=== PATIENT | male | born 1980 | race Caucasian/White ===

== ENCOUNTER 2022-03-24 12:47 | Emergency (ER) | payer SELFPAY ==
[~2022-03-24] VITALS: Ht 167.6 cm; Wt 81.8 kg
[2022-03-24 12:57] VITALS: BP 139/86
[2022-03-24] MEDS ORDERED: HYDROcodone/acetaminophen 10/325mg tab PO STA (13:02)
[2022-03-24] MEDS ORDERED: OXYC-658 PO ×2 (16:53→18:43)
== END 2022-03-24 17:15 | disposition home or self-care (01) ==
LOC: ER 12:48
DX: S93.401A Sprain of unspecified ligament of right ankle, initial encounter (principal); X58.XXXA Exposure to other specified factors, initial encounter; Y93.89 Activity, other specified; Y92.89 Other specified places as the place of occurrence of the external cause; Y99.8 Other external cause status
CPT/HCPCS: 73564; 73610; 73630; 99284; L4360